=== PATIENT | female | born 1995 | race Caucasian/White ===

== ENCOUNTER 2016-09-21 22:28 | Emergency (ER) | payer OTHER ==
[~2016-09-21] VITALS: Ht 152.4 cm; Wt 52.0 kg
[2016-09-21 22:31] VITALS: Ht 152.4 cm; Wt 52.0 kg
[2016-09-21] MEDS ORDERED: IBUP400T22 PO (22:52)
[2016-09-21] MEDS ORDERED: AMO500 PO (22:52)
--- NOTE | 2016-09-21 23:02 | ERA ---
ER Documentation Chief Complaint Date/Time DATE: 09/21/16 TIME: 23:00 Chief Complaint sore throat x 2 days, body aches HPI This is a 21-year-old otherwise healthy female presenting with a 1-2 day history of fever and pharyngitis. Patient states that the pharyngitis is worse with swallowing. Has not taken any medications to relieve the symptoms. Denies cough, difficulty breathing, dysphagia, change in voice, drooling, fatigue, oral swelling, ear pain, or meningismus. Patients vaccination status is up to date. Denies recent travel. Nursing notes have been reviewed and are consistent with history given. ROS All systems reviewed and are negative except as per history of present illness. Medications Home Meds Active Scripts Ibuprofen* (Motrin*) 400 Mg Tab, 400 MG PO Q6, #30 TAB Prov:JUAN AMAYA PA-C 09/21/16 Amoxicillin* (Amoxicillin*) 500 Mg Cap, 500 MG PO TID for 7 Days, CAP Prov:JUAN AMAYA PA-C 09/21/16 Allergies Allergies: Coded Allergies: No Known Allergy (Unverified , 07/16/14) PMhx/Soc Medical and Surgical Hx: pt denies Surgical Hx History of Surgery: No Anesthesia Reaction: No Hx Neurological Disorder: No Hx Respiratory Disorders: No Hx Cardiac Disorders: No Hx Psychiatric Problems: No Hx Miscellaneous Medical Probl: Yes (UTI) Hx Alcohol Use: No Hx Substance Use: No Hx Tobacco Use: No Smoking Status: Never smoker Physical Exam Vitals Vital Signs Date Time Temp Pulse Resp B/P Pulse Ox O2 Delivery O2 Flow Rate FiO2 09/21/16 22:31 98.0 122 20 111/76 98 Physical Exam Const: Healthy-appearing, well-nourished, well-developed, no acute distress. Throat: Erythematous oropharynx with exudates visualized. Enlarged tonsils bilaterally. Moist mucous membranes. Neck: Tender anterior cervical lymphadenopathy palpated bilaterally. No posterior cervical lymphadenopathy, masses or goiter palpated. Trachea midline. Full range of motion. Supple. ~ No meningismus. Skin: No petechiae or rashes. No ulcer, induration, jaundice. Good turgor. Resp: No dyspnea, stridor, tripoding or drooling. Good air movement. Clear to auscultation bilaterally. Head: Normocephalic, Atraumatic. Eyes: Non-injected; No scleral erythema, discharge or foreign body. EOMI bilaterally. PERRLA. Ears: Normal External Ears, EACs clear, TM normal bilaterally without erythema. Nose: Normal nose without discharge, septal deviation, or sinus tenderness. Cardio: Regular rate and rhythm; No murmurs, gallops or rubs auscultated. No JVD grossly observed. Radial and posterior tibial pulses 2+ bilaterally. Capillary refill less than 2 seconds. Abd: Soft, non tender, non distended. No guarding, masses. Normal bowel sounds. No McBurney's point tenderness. MS: Normal motor strength, normal tone with gross examination. Back: No midline, flank or CVA tenderness. Ext: No cyanosis, edema or palpable cord. Normal movement of all extremities grossly observed. Neur: Awake, alert and oriented x3. Neurovascularly intact bilaterally. Psych: Normal Mood and Affect. Procedures/MDM Patient was evaluated and worked up for pharyngitis presenting as described in the history and physical exam. Patient refused medications in the ED. The patient has a [employer] [facility] Criteria of 3 out of 5. The current most likely diagnosis is pharyngitis due to group B strep. The treatment plan will thus include out-patient antibiotics and supportive measures. At this time I do not suspect diphtheria, Raúl-Ross virus, peritonsillar abscess, epiglottitis, retropharyngeal abscess, parapharyngeal abscess, or allergic reaction. I no longer have suspicion for endangerment of the airway. I have spoke with the patients regarding their condition and future management. They have verbally responded that they understand and agree with their status and treatment plan. The patients vitals are stable, and their current condition is appropriate for discharge. The patient will be given discharge instructions with return precautions. Departure Diagnosis: Primary Impression: Pharyngitis Qualified Code: J02.0 - Pharyngitis due to Streptococcus species Condition: Stable Patient Instructions: Pharyngitis, Strep (Presumed) Additional Instructions: Follow up with your PCP within the next 1-3 days for a more thorough evaluation and a possible referral to a specialist. Return the the emergency department immediately if symptoms worsen or change. If you have any questions regarding medications, ask your pharmacist or us before you leave. If any adverse reactions occur while taking your medications, discontinue the treatment and return to the emergency department immediately. Take your medications as directed, and complete the entire course of treatment. JUAN AMAYA PA-C Sep 21, 2016 23:02
[2016-09-21] MEDS ORDERED: IBUPROFEN LIQUID (PED) 20 MG/ML CUP PO STA (23:06)
[2016-09-21 23:19] VITALS: PULSE 125; RESP 26; TEMP 99.4
== END 2016-09-21 23:15 | disposition home or self-care (01) ==
LOC: FTE 22:28
DX: J02.0 Streptococcal pharyngitis (principal)
CPT/HCPCS: 99283